=== PATIENT | male | born 1960 | race Caucasian/White ===

== ENCOUNTER 2016-04-13 09:43 | Emergency (ER) | payer OTHER ==
[2016-04-13 10:07] VITALS: BP 142/89; PULSE 66; TEMP 98; BMI 36.9
[2016-04-13] MEDS ORDERED: IBUPROFEN 600 MG TABLET (FP) PO ONE ×2 (11:06→11:08)
--- NOTE | 2016-04-13 11:08 | PDOC ---
History of Present Illness - General Chief Complaint: Injury Stated Complaint: FALL Time Seen by Provider: 04/13/16 10:39 History Source: Patient Exam Limitations: No Limitations - History of Present Illness Initial Comments: 04/13/16 12:03 Chief complaint: left foot and ankle pain History of present illness: Patient is a 55 year old [employer] history of hypertension here today complaining of left foot and ankle discomfort after slipping on stairs getting off of firetruck landing with his foot flat patient denies twisting of the left foot or ankle. She denies any numbness of his left foot or ankle. Patient denies any other injury. There is no gross deformity noted slight swelling of dorsal foot and ankle. Occurred: reports: this morning Severity: Yes: moderate Lower Extremity Pain Location: right: foot Method of Injury: Yes: other (slipped coming off fire truck unto rt. foot did not twist it ) Modifying Factors: improves with: immobilization Lower Ext. Injury Location - Specific Injury Location Foot: right foot pain, right foot swelling (dorsal foot ) Extremity Pain Location - Extremity Pain Location Extremity Pain Locations: right: foot (dorsal foot) Past History - Past Medical History Allergies/Adverse Reactions: Allergies Allergy/AdvReac Type Severity Reaction Status Date / Time No Known Drug Allergies Allergy Verified 04/13/16 09:58 Home Medications: Ambulatory Orders Amlodipine Besylate [Norvasc -] 10 mg PO DAILY 10/29/12 Ibuprofen [Motrin] 800 mg PO TID #20 tablet 03/07/15 Methocarbamol [Robaxin -] 500 mg PO TID #21 tablet 03/07/15 Anemia: No Asthma: No Cancer: No Cardiac Disorders: No CVA: No COPD: No CHF: No Dementia: No Diabetes: No GI Disorders: No Disorders: No HTN: Yes Hypercholesterolemia: No Liver Disease: No Seizures: No Thyroid Disease: No - Surgical History Abdominal Surgery: No Appendectomy: No Cardiac Surgery: No Cholecystectomy: No Lung Surgery: No Neurologic Surgery: No Orthopedic Surgery: No (LEFT HAND SURGERY) - Immunization History Immunization Up to Date: Yes - Psycho/Social/Smoking Cessation Hx Suicidal Ideation: No Smoking Status: No Smoking History: Never smoked Have you smoked in the past 12 months: No Number of Cigarettes Smoked Daily: 0 Hx Alcohol Use: No Drug/Substance Use Hx: No Substance Use Type: Alcohol Hx Substance Use Treatment: No Review of Systems - Review of Systems Able to Perform ROS?: Yes Is the patient limited Yoruba proficient: No Constitutional: No: Symptoms Reported HEENTM: No: Symptoms Reported Respiratory: No: Symptoms reported Cardiac (ROS): No: Symptoms Reported ABD/GI: No: Symptoms Reported : No: Symptoms Reported Musculoskeletal: Yes: Joint Pain (left dorsal foot), Joint Swelling (left medial ankle ) Integumentary: No: Symptoms Reported Neurological: No: Symptoms reported *Physical Exam - Vital Signs Last Vital Signs Temp Pulse Resp BP Pulse Ox 98 F 66 19 142/89 96 04/13/16 09:58 04/13/16 09:58 04/13/16 09:58 04/13/16 09:58 04/13/16 09:58 - Physical Exam Vascular Pulses: Doralis-Pedis (L): 4+ Extremity: positive: Normal Capillary Refill, Normal Range of Motion, Tender ( left dorsal foot), Swelling (left mid dorsal foot, slight, media ankle ) Integumentary: positive: Normal Color Neurologic: positive: Alert, Normal Response, Respond to painful stimul (left foot ). negative: Numbness, Sensory Deficit Deep Tendon Reflexes: Ankle (L): 4+ ED Treatment Course - RADIOLOGY Radiology Studies Ordered: Category Date Time Status ANKLE & FOOT-LEFT* [RAD] Stat Radiology 04/13/16 11:05 Ordered Medical Decision Making - Medical Decision Making 04/13/16 12:05 Patient is a 55 year old [employer] history of hypertension here today complaining of left foot and ankle discomfort after slipping on stairs getting off of firetruck landing with his foot flat patient denies twisting of the left foot or ankle. She denies any numbness of his left foot or ankle. Patient denies any other injury. There is no gross deformity noted slight swelling of dorsal foot and ankle. Foot and ankle injury rule out fracture Plan: X-ray left foot and ankle reveals bunion formation first MTP joint. Calcaneus spurring. Minimal ankle swelling. No acute fracture or subluxation. Per Dr. Celeste ibuprofen 600 mg by mouth now does not want mayco wrap Elevate left leg as much as possible and apply ice every hour or 2 Follow-up with orthopedist if pain continues in occupational health prior to return back to work 04/13/16 20:31 *DC/Admit/Observation/Transfer Diagnosis at time of Disposition: Sprain of foot, right Qualifiers: Encounter type: initial encounter Qualified Code(s): S93.601A - Unspecified sprain of right foot, initial encounter Sprained ankle Qualifiers: Encounter type: initial encounter Involved ligament of ankle: unspecified ligament Laterality: right Qualified Code(s): S93.401A - Sprain of unspecified ligament of right ankle, initial encounter - Discharge Dispostion Disposition: HOME Condition at time of disposition: Stable - Patient Instructions Additional Instructions: Elevate foot as much as possible and apply ice every hour to 2 hours for 15 minutes while awake today and tomorrow Ibuprofen as needed as directed by canvas cutter hand for pain Return to emergency room if any numbness or worsening pain in right foot or ankle Follow Up with orthopedist within the next few days if pain continues Follow-up with occupational health prior to return to work Patient voiced understanding of discharge instructions and all questions were answered
== END 2016-04-13 12:08 | disposition home or self-care (01) ==
LOC: JERFT 09:43 → JER 09:43 → JERFT 12:08
DX: S93.402A Sprain of unspecified ligament of left ankle, initial encounter (principal); S93.692A Other sprain of left foot, initial encounter; V86.41XA Person injured while boarding or alighting from ambulance or fire engine, initial encounter; Y93.89 Activity, other specified; Y92.89 Other specified places as the place of occurrence of the external cause; Y99.0 Civilian activity done for income or pay; I10 Essential (primary) hypertension
CPT/HCPCS: 73610-TC-LT; 73630-TC-LT; 99281-25